=== PATIENT | female | born 2000 | race Hispanic/Latino ===

== ENCOUNTER 2019-01-14 07:07 | Inpatient (IN) | payer OTHER ==
[~2019-01-14] VITALS: Ht 154.9 cm; Wt 99.8 kg
[2019-01-14] MEDS ORDERED: LACTATED RINGERS 1000ML 1,000 ML IV PRN (07:22)
[2019-01-14] MEDS ORDERED: AMPICILLIN 2GM+NS 100ML 100 ML IV SCH (07:30)
[2019-01-14 07:34] LABS: APPEARANCE,URINE CLOUDY (CLEAR); BILIRUBIN,URINE SMALL (NEGATIVE); COLOR,URINE YELLOW (YELLOW); GLUCOSE, URINE (UA) NEGATIVE (NEGATIVE); KETONES,URINE NEGATIVE (NEGATIVE); LEUKOCYTE ESTERASE ,URINE MODERATE (NEGATIVE); NITRATE,URINE NEGATIVE (NEGATIVE); OCCULT BLOOD,URINE LARGE (NEGATIVE); PROTEIN,URINE 30 mg/dL (NEGATIVE); UROBILINOGEN,URINE 0.2 mg/dL (0.2-1.0)
[2019-01-14 07:42] LABS: RBC,URINE 51-100 /HPF (0-1)
[2019-01-14 07:43] LABS: BACTERIA,URINE Few /HPF (None Seen); MUCUS,URINE Few LPF (None Seen); SQUAMOUS EPITHELIAL CELL,UR Moderate /HPF (0-2)
[2019-01-14 07:53] LABS: HEMATOCRIT 29.4 % (36-48); MEAN CORPUSCULAR HEMOGLOBIN 19.6 pg (27.0-33.0); MEAN CORPUSCULAR HGB CONC 30.5 g/dL (32.0-36.0); MEAN CORPUSCULAR VOLUME 64.3 fL (80-100); NUCLEATED RED BLOOD CELLS 0.1 % (0.0-0.19); PLATELET COUNT (AUTO) 380 K/uL (130-400); RED BLOOD CELL COUNT(AUTO) 4.57 MIL/uL (4.00-5.50); RED CELL DISTRIBUTION WIDTH 19.7 % (11.0-15.5); WHITE BLOOD COUNT (AUTO) 10.6 K/uL (4.8-10.8)
[2019-01-14] MEDS ORDERED: LIDOCAINE HCL 1% 20 ML VIAL ONE (07:53)
[2019-01-14 07:58] LABS: AMPHET/METH SCREEN,URINE NEGATIVE (NEGATIVE); BARBITURATE SCREEN, URINE NEGATIVE (NEGATIVE); BENZODIAZEPINES SCREEN,URINE NEGATIVE (NEGATIVE); CANNABINOID SCREEN,URINE NEGATIVE (NEGATIVE); COCAINE SCREEN,URINE NEGATIVE (NEGATIVE); OPIATE SCREEN,URINE NEGATIVE (NEGATIVE); PHENCYCLIDINE SCREEN,URINE NEGATIVE (NEGATIVE)
[2019-01-14] MEDS ORDERED: BUTORPHANOL TARTRATE 2 MG/ML ONE (08:31)
[2019-01-14 08:33] LABS: RAPID PLASMA REAGIN NONREACTIVE (NONREACTIVE)
[2019-01-14] MEDS ORDERED: OXYTOCIN-LR 20 UNITS/1000 ML 1,000 ML IV ONE (09:34)
[2019-01-14] MEDS ORDERED: METHYLERGONOVINE MALEATE 0.2 MG/1 ML ML ONE (09:34)
[2019-01-14] MEDS ORDERED: LANOLIN 30GM OINTMENT TP PRN (10:00)
[2019-01-14] MEDS ORDERED: ACETAMINOPHEN-CODEINE 300/30MG TAB PO PRN (10:00)
[2019-01-14] MEDS ORDERED: BENZOCAINE/LANOLIN/ALOE VERA 60 ML AEROSOL TP PRN (10:00)
[2019-01-14] MEDS ORDERED: DIPH,PERTUSS(ACELL),TET VAC/PF 0.5 ML VIAL IM PRN (10:00)
[2019-01-14] MEDS ORDERED: MEASLES/MUMPS/RUBELLA VACCINE, LIVE 0.5 ML/VIAL SQ PRN (10:00)
[2019-01-14] MEDS ORDERED: WITCH HAZEL 1 PAD TP PRN (10:00)
[2019-01-14] MEDS ORDERED: ACETAMINOPHEN 325 MG TAB PO PRN (10:00)
[2019-01-14 14:16] VITALS: BP 126/80
[2019-01-14 16:27] VITALS: BP 131/73
[2019-01-14] MEDS ORDERED: PNV11TAB5 PO (17:42)
--- NOTE | 2019-01-14 18:00 | NUR ---
DR. CHO CALLED AND ORDER RECEIVED FOR DISCHARGE OF PATIENT. WAS DISCHARGED TO MOTHER AND BOTH IN STABLE CONDITION. DISCHARGE INSTRUCTIONS GIVEN TO PATIENT AND SCRIPT FOR MOTRIN. PATIENT INSTRUCTED ON DOSAGE AND FREQUENCY OF MEDS AND VERBALIZED UNDERSTANDING. Addendum: 01/15/19 at 1444 by SHIMA PATIÑO RN CHARTED IN ERROR. WRONG PT.
--- NOTE | 2019-01-14 18:30 | NUR ---
PATIENT WAS TAKEN VIA W/C TO FAMILY VEHICLE CARRYING BABY IN ARMS. PATIENT STABLE AND DENIES PAIN. Addendum: 01/15/19 at 1700 by SHIMA PATIÑO RN ENTERED IN ERROR. WRONG PATIENT.
[2019-01-14] MEDS: IBUPROFEN 600 MG TABLET PO PRN (19:47)
[2019-01-14 20:20] VITALS: BP 116/73
[2019-01-14] MEDS: DOCUSATE SODIUM 100 MG CAP PO SCH (21:14)
[2019-01-14] MEDS: AMPICILLIN 1GM+NS 50ML 50 ML IV SCH (23:30)
[2019-01-14 23:39] VITALS: BP 122/71
[2019-01-15] MEDS: AMPICILLIN 1GM+NS 50ML 50 ML IV SCH (03:30)
[2019-01-15 03:39] VITALS: BP 115/68
[2019-01-15] MEDS: IBUPROFEN 600 MG TABLET PO PRN ×3 (04:12→16:40)
--- NOTE | 2019-01-15 07:50 | NUR ---
PATIENT ASSESSED AND DOING WELL. C/O MILD DISCOMFORT BUT OTHERWISE DOING WELL. NOT BLEEDING MUCH ONLY HAS SOME DISCOMFORT TO PERINEUM. ENCOURAGED TO USE SPRAY AND TUCKS.
[2019-01-15 07:58] VITALS: BP 127/72
[2019-01-15] MEDS: DOCUSATE SODIUM 100 MG CAP PO SCH (08:34)
[2019-01-15 11:45] VITALS: BP 124/69
--- NOTE | 2019-01-15 14:30 | NUR ---
PATIENT WAS GIVEN DISCHARGE INSTRUCTIONS AND INSTRUCTED TO TAKE MOTRIN OVER THE COUNTER NEEDED FOR PAIN. PATIENT ALSO INSTRUCTED TO FOLLOWUP WITH DR. MIKAL RODARTE IN 2-3 WEEKS OR SHE COULD GO TO HER OB OF CHOICE PER DR. RODARTE. VERBALIZED UNDERSTANDING.
[2019-01-15 16:00] VITALS: BP 122/71
--- NOTE | 2019-01-15 16:50 | NUR ---
PATIENT WAS TAKEN VIA W/C TO FAMILY VEHICLE AFTER FEEDING BABY. PATIENT IS STABLE AND C/O MILD DISCOMFORT AND WAS GIVEN MOTRIN PRIOR TO DISCHARGE.
[2019-01-17 07:15] LABS: HEPATITIS Bs ANTIGEN SCREEN P Negative (Negative)
== END 2019-01-15 16:50 | disposition home or self-care (01) | DRG 807 ==
LOC: EDH 07:07 → LDH 07:08 → OBSVTOIN 07:08 → WSH 13:52
PROVIDERS: ADMIT Obstetrics & Gynecology; ATTEND Obstetrics & Gynecology
PROC: 10E0XZZ Delivery of Products of Conception, External Approach (ICD-10-PCS; principal; 2019-01-14)
PROC: 0KQM0ZZ Repair Perineum Muscle, Open Approach (ICD-10-PCS; 2019-01-14)
PROC: 3E0234Z Introduction of Serum, Toxoid and Vaccine into Muscle, Percutaneous Approach (ICD-10-PCS; 2019-01-14)
PROC: 3E0134Z Introduction of Serum, Toxoid and Vaccine into Subcutaneous Tissue, Percutaneous Approach (ICD-10-PCS; 2019-01-14)
DX: O98.32 Other infections with a predominantly sexual mode of transmission complicating childbirth (principal); Z37.0 Single live birth; A63.0 Anogenital (venereal) warts; O70.1 Second degree perineal laceration during delivery; Z23 Encounter for immunization; Z3A.38 38 weeks gestation of pregnancy
CPT/HCPCS: 36415; 80305; 81001; 85027; 86592; 86701; 86850; 86900; 86901; 87340; 87390; A4351; G0378; J0595; J2210; J2590

== ENCOUNTER 2021-04-06 13:22 | Emergency (ER) | payer MEDICAID, OTHER ==
[~2021-04-06] VITALS: Ht 154.9 cm; Wt 102.1 kg
[~2021-04-06 13:22] MED LIST: PNV11TAB5 PO
[2021-04-06] MEDS ORDERED: ACETAMINOPHEN 325 MG TAB ONE (13:49)
[2021-04-06] MEDS ORDERED: ACETAMINOPHEN 325 MG TAB PO ONE (14:00)
[2021-04-06 14:09] LABS: BASOPHILS % (AUTO) 0.8 % (0.0-5.0); EOSINOPHILS % (AUTO) 1.1 % (0.0-8.0); HEMATOCRIT 42.3 % (36-48); LYMPHOCYTES % (AUTO) 27.8 % (21.0-51.0); MEAN CORPUSCULAR HEMOGLOBIN 26.8 pg (27.0-33.0); MEAN CORPUSCULAR HGB CONC 32.2 g/dL (32.0-36.0); MEAN CORPUSCULAR VOLUME 83.3 fL (79-99); MONOCYTES % (AUTO) 7.8 % (3.0-13.0); NEUTROPHILS % (AUTO) 62.3 % (40.0-77.0); PLATELET COUNT (AUTO) 294 K/uL (130-400); RED BLOOD CELL COUNT(AUTO) 5.08 MIL/uL (4.00-5.50); WHITE BLOOD COUNT (AUTO) 6.5 K/uL (4.8-10.8)
[2021-04-06 16:21] VITALS: BP 129/84
== END 2021-04-06 16:49 | disposition home or self-care (01) ==
LOC: EDH 13:22
DX: O20.0 Threatened abortion (principal); Z3A.01 Less than 8 weeks gestation of pregnancy
CPT/HCPCS: 36415; 76801; 84702; 85025; 86900; 86901

== ENCOUNTER 2021-05-11 11:23 | Emergency (ER) | payer OTHER ==
[~2021-05-11] VITALS: Ht 154.9 cm; Wt 101.2 kg
[2021-05-11 11:24] VITALS: BP 104/71
== END 2021-05-11 13:02 | disposition home or self-care (01) ==
LOC: EDH 11:23
DX: M25.532 Pain in left wrist (principal); M79.645 Pain in left finger(s); W18.39XA Other fall on same level, initial encounter; Y93.89 Activity, other specified; Y92.89 Other specified places as the place of occurrence of the external cause; Y99.8 Other external cause status
CPT/HCPCS: 99281

== ENCOUNTER 2022-08-06 10:22 | Emergency (ER) | payer MEDICAID ==
[~2022-08-06] VITALS: Ht 154.9 cm; Wt 90.7 kg
[2022-08-06 10:28] VITALS: BP 119/74
== END 2022-08-06 14:42 | disposition home or self-care (01) ==
LOC: EDH 10:22
DX: B34.9 Viral infection, unspecified (principal); J37.0 Chronic laryngitis; E66.9 Obesity, unspecified; Z20.822 Contact with and (suspected) exposure to COVID-19; Z68.37 Body mass index [BMI] 37.0-37.9, adult
CPT/HCPCS: 99284; 71046; 87635; 87804 ×2; C9803

== ENCOUNTER 2022-10-24 17:49 | Emergency (ER) | payer MEDICAID ==
[~2022-10-24] VITALS: Ht 157.5 cm; Wt 93.0 kg
[2022-10-24 18:17] LABS: APPEARANCE,URINE CLEAR (CLEAR); BILIRUBIN,URINE NEGATIVE (NEGATIVE); COLOR,URINE COLORLESS (YELLOW); GLUCOSE, URINE (UA) NEGATIVE (NEGATIVE); KETONES,URINE NEGATIVE (NEGATIVE); LEUKOCYTE ESTERASE ,URINE NEGATIVE Leu/uL (NEGATIVE); NITRATE,URINE NEGATIVE (NEGATIVE); OCCULT BLOOD,URINE NEGATIVE (NEGATIVE); PH,URINE 7.5 (5.0-8.0); PROTEIN,URINE NEGATIVE (NEGATIVE); UROBILINOGEN,URINE 0.2 mg/dL (0.2-1.0)
[2022-10-24 18:27] LABS: MUCUS,URINE RARE LPF (None Seen); SQUAMOUS EPITHELIAL CELL,UR RARE /HPF (0-2); WBC,URINE 0-1 /HPF (0-1)
[2022-10-24 19:07] VITALS: BP 127/67
[2022-10-24] MEDS ORDERED: KETOROLAC 15MG/ML VIAL (15MG/ML) IM ONE (19:30)
== END 2022-10-24 19:32 | disposition home or self-care (01) ==
LOC: EDH 17:49
DX: R10.30 Lower abdominal pain, unspecified (principal); E66.9 Obesity, unspecified; Z68.37 Body mass index [BMI] 37.0-37.9, adult
CPT/HCPCS: 99283; 81001; 81025; 96372; J1885